=== PATIENT | female | born 1990 | race Caucasian/White ===

== ENCOUNTER 2018-04-19 01:01 | Emergency (ER) | payer MEDICAID ==
[2018-04-19] MEDS: IBUPROFEN 600 MG TAB PO (01:44)
== END 2018-04-19 01:49 | disposition home or self-care (01) ==
LOC: FTE 01:01
DX: G56.02 Carpal tunnel syndrome, left upper limb (principal); F17.210 Nicotine dependence, cigarettes, uncomplicated
CPT/HCPCS: 29125; 99282-25

== ENCOUNTER 2018-05-05 23:56 | Emergency (ER) | payer MEDICAID, OTHER | END 2018-05-06 00:53 | disposition home or self-care (01) | LOC: FTE 23:56 | DX: M79.632 Pain in left forearm (principal); F17.210 Nicotine dependence, cigarettes, uncomplicated | CPT/HCPCS: 99282; Z7502 ==